=== PATIENT | female | born 1980 | race Two or more races ===

== ENCOUNTER 2017-02-21 22:02 | Emergency (ER) | payer MEDICAID ==
[~2017-02-21] VITALS: Ht 167.6 cm; Wt 72.6 kg
[2017-02-21 22:48] LABS: Basophils # (auto) 0.1 uL; Basophils % (auto) 0.5 % (0.0-2.0); DEFINITIVE VIEW TRANSMISSION; Eosinophils # (auto) 0.1 uL; Eosinophils % (auto) 0.9 % (0.0-7.0); Hematocrit 37.5 % (36.0-46.0); Hemoglobin 12.1 g/dL (12.2-16.2); Lymphocytes # (auto) 2.8 uL; Lymphocytes % (auto) 28.3 % (10.0-50.0); Mean Corpuscular Hgb Conc. 32.2 g/dL (32.0-36.0); Mean Corpuscular Volume 68.1 fL (80.0-100.0); Mean Platelet Volume 8.8 fL (7.4-10.4); Monocytes # (auto) 0.7 uL; Neutrophils # (auto) 6.3 uL; Neutrophils % (auto) 63.3 % (37.0-80.0); Platelet Count (auto) 290 10^3/uL (140-450); Red Cell Distribution Width 15.7 % (11.6-16.0); White Blood Cell 9.9 10^3/uL (4.4-10.8)
[2017-02-21 22:53] LABS: Albumin 3.7 g/dL (3.4-5.0); Anion Gap 7 (5-15); Aspartate Aminotransferase 16 U/L (15-37); BUN/Creatinine Ratio 8.8; Blood Urea Nitrogen 7 mg/dL (7-18); Calcium 8.3 mg/dL (8.5-10.1); Carbon Dioxide 27 mmol/L (21-32); Chloride 105 mmol/L (98-107); GFR African American 105 mL/min; GFR Non-African American 87 mL/min; Glucose 83 mg/dL (74-106); Potassium 3.6 mmol/L (3.5-5.1); Sodium 139 mmol/L (136-145)
[2017-02-21 22:58] LABS: Alkaline Phosphatase 73 U/L (45-117); Bilirubin, Total 0.8 mg/dL (0.2-1.0); Total Protein 7.2 g/dL (6.4-8.2)
[2017-02-21 23:34] LABS: Platelet Estimate Adequate
[2017-02-21 23:35] LABS: Anisocytosis Slight; Microcytosis Marked; Tear Drop Cells FEW
[2017-02-21 23:36] LABS: Hypersegmented Neutrophils Present
[2017-02-21 23:56] LABS: Urine Bilirubin Negative (Negative); Urine Blood Negative /uL (Negative); Urine Color Yellow (Yellow); Urine Glucose Normal (Normal); Urine Ketone Negative (Negative); Urine Mucus FEW (None Seen); Urine Nitrite Negative (Negative); Urine RBC 2 /hpf (0 - 4); Urine Squamous Epithelial Cell FEW /hpf (<5); Urine Urobilinogen Normal (Negative); Urine pH 5.5 (5.0-8.0)
[2017-02-22 00:09] LABS: Acetaminophen < 2.0 ug/mL (10-30); Salicylate < 1.7 mg/dL (2.8-20.0)
[2017-02-22] MEDS ORDERED: SODIUM CHLORIDE 0.9% 2,000 ML IV ONE (01:00)
[2017-02-22 03:44] VITALS: BP 101/64
== END 2017-02-22 07:30 | disposition home or self-care (01) ==
LOC: ER 22:02 → EDBD 22:02 → ER 02-22 07:30
DX: G92 Toxic encephalopathy (principal); R41.82 Altered mental status, unspecified
CPT/HCPCS: 36415; 51702; 80053; 80307; 80320; 80329; 81001; 82962; 84484; 84702; 85025; 96360; 96361; 99285; J7030

== ENCOUNTER 2018-06-01 16:22 | Emergency (ER) | payer MEDICAID, OTHER ==
[~2018-06-01] VITALS: Ht 157.5 cm; Wt 63.5 kg
[2018-06-01] MEDS ORDERED: SODIUM CHLORIDE 0.9% 1,000 ML IVB ONE (17:38)
[2018-06-01 18:17] LABS: Basophils # (auto) 0.1 uL; Eosinophils # (auto) 0 uL; Hemoglobin 13.1 g/dL (12.2-16.2); Monocytes # (auto) 0.6 uL; Red Cell Distribution Width 14.9 % (11.8-14.3); White Blood Cell 10.3 10^3/uL (4.4-10.8)
[2018-06-01 18:18] LABS: Basophils % (auto) 0.6 % (0.0-2.0); Eosinophils % (auto) 0.5 % (0.0-7.0); Hematocrit 40.2 % (36.0-46.0); Lymphocytes # (auto) 1.2 uL; Mean Corpuscular Hemoglobin 22.4 pg (28.0-32.0); Mean Corpuscular Hgb Conc. 32.6 g/dL (32.0-36.0); Mean Corpuscular Volume 68.7 fL (80.0-100.0); Monocytes % (auto) 5.8 % (0.0-12.0); Neutrophils # (auto) 8.4 uL; Neutrophils % (auto) 81.1 % (37.0-80.0); Nucleated Red Blood Cells % 0.2 %; Platelet Count (auto) 243 10^3/uL (140-450); Red Blood Cells 5.85 10^6/uL (4.0-5.20)
[2018-06-01 18:39] LABS: Albumin 3.9 g/dL (3.4-5.0); BUN/Creatinine Ratio 11.4; Bilirubin, Total 0.6 mg/dL (0.2-1.0); Calcium 8.7 mg/dL (8.5-10.1); Magnesium 2.6 mg/dL (1.6-2.6); Potassium 3.3 mmol/L (3.5-5.1); Total Protein 7.9 g/dL (6.4-8.2)
[2018-06-01 18:41] LABS: Acetaminophen < 2.0 ug/mL (10-30); Salicylate < 1.7 mg/dL (2.8-20.0)
[2018-06-01] MEDS ORDERED: POTASSIUM CHL 20 Meq TABLET PO ONE (19:15)
[2018-06-01] MEDS ORDERED: THIAMINE INJ 100 MG, MULTIPLE VITAMIN 10 ML, FOLIC ACID 1 MG, MAGNESIUM SULF SDV 50% 8 ... IV STA ×10 (20:54→21:02)
[2018-06-01] MEDS ORDERED: TETANUS-DIPTH-ACEL PERTUSSIS 0.5ML SYRG IM ONE (21:00)
[2018-06-01] MEDS ORDERED: ACETAMINOPHEN 500 MG TAB PO ONE (21:30)
[2018-06-01 21:33] LABS: Amphetamine Screen, Urine NEGATIVE (NEGATIVE); Barbiturate Scree,Urine NEGATIVE (NEGATIVE); Benzodiazephine Screen, Urine NEGATIVE (NEGATIVE); Cannabinoid Screen, Urine POSITIVE (NEGATIVE); Cocaine Screen, Urine NEGATIVE (NEGATIVE); Opiate Scree,Urine NEGATIVE (NEGATIVE); Phencyclidine Screen, Urine NEGATIVE (NEGATIVE); Urine Bacteria FEW /hpf (None Seen); Urine Blood Negative /uL (Negative); Urine Specific Gravity 1.007 (1.001-1.035); Urine WBC 8 /hpf (0 - 5)
[2018-06-01] MEDS ORDERED: cefTRIAXone 1GM/10ml IVPUSH 10 ML IV ONE (22:30)
[2018-06-01] MEDS ORDERED: NEOMYCIN-BACITRACIN-POLYM UNITDOSE PKG TOP OINT TOP ONE (22:45)
[2018-06-01 23:00] VITALS: BP 116/65
[2018-06-02] MEDS ORDERED: THIAMINE INJ 100 MG, MULTIPLE VITAMIN 10 ML, FOLIC ACID 1 MG, MAGNESIUM SULF SDV 50% 8 ... IV SCH ×5 (12:00)
== END 2018-06-01 23:18 | disposition home or self-care (01) ==
LOC: EDBD 16:22 → ER 16:24
DX: S61.411A Laceration without foreign body of right hand, initial encounter (principal); F10.129 Alcohol abuse with intoxication, unspecified; E87.6 Hypokalemia; R41.82 Altered mental status, unspecified; Z88.2 Allergy status to sulfonamides; W22.8XXA Striking against or struck by other objects, initial encounter; Y93.89 Activity, other specified; Y99.8 Other external cause status; Y92.89 Other specified places as the place of occurrence of the external cause
CPT/HCPCS: 12002; 36415; 73130; 80053; 80307; 80320; 80329; 81001; 83735; 84702; 85025; 90471; 90715; 94761; 96361; 96365; 96366; 96375; 99285; J0696; J7030

== ENCOUNTER 2022-08-13 19:01 | Emergency (ER) | payer MEDICAID ==
[~2022-08-13] VITALS: Ht 157.5 cm; Wt 61.5 kg
[2022-08-13 19:16] VITALS: BP 110/78
== END 2022-08-14 02:44 | disposition left against medical advice (07) ==
LOC: EDBD 19:01 → EDUNIT# 19:01 → ER 19:05
DX: R10.9 Unspecified abdominal pain (principal); Z53.21 Procedure and treatment not carried out due to patient leaving prior to being seen by health care provider